=== PATIENT | male | born 1960 | race Caucasian/White ===

== ENCOUNTER 2021-04-17 03:39 | Inpatient (IN) | payer MEDICAID ==
[~2021-04-17] VITALS: Ht 177.8 cm; Wt 113.6 kg
[2021-04-17 04:18] LABS: PARTIAL THROMBOPLASTIN TIME 34 SECONDS (22-32)
[2021-04-17] MEDS ORDERED: ondansetron/PF 4mg/2ml inj IV ONE (04:25)
[2021-04-17 04:26] LABS: ETHANOL < 0.010 GM/DL (0.0-0.010); TROPONIN I 0.72 NG/ML (0.0-0.05)
[2021-04-17 04:32] LABS: URINE AMPHETAMINE SCREEN POSITIVE (Neg); URINE BARBITUATE SCREEN NEGATIVE (Neg); URINE BENZODIAZEPINES SCREEN NEGATIVE (Neg); URINE CANNABINOID SCREEN NEGATIVE (Neg); URINE COCAINE SCREEN NEGATIVE (Neg); URINE METHADONE SCREEN NEGATIVE (Neg); URINE OPIATE SCREEN POSITIVE (Neg); URINE PHENCYCLIDINE SCREEN NEGATIVE (Neg)
[2021-04-17] MEDS ORDERED: NO HOME MEDS (04:44)
[2021-04-17] MEDS ORDERED: magnesium Cl slow-release 64mg tablet PO PRN (05:40)
[2021-04-17] MEDS ORDERED: morphine 2 MG/ML inj. syringe IV PRN (05:40)
[2021-04-17] MEDS ORDERED: potassium Cl 20 mEq SR tablet PO PRN ×2 (05:40)
[2021-04-17] MEDS ORDERED: potassium Cl 40MEQ/1/2NS 520ml 520 ML IV PRN ×2 (05:40)
[2021-04-17] MEDS ORDERED: acetaminophen 325mg tablet PO PRN (05:40)
[2021-04-17] MEDS ORDERED: magnesium 4gm in 100ml NS 100 ML IV PRN (05:40)
[2021-04-17] MEDS ORDERED: ondansetron/PF 4mg/2ml inj IV PRN (05:40)
[2021-04-17] MEDS ORDERED: magnesium 2GM in 50ml NS 50 ML IV PRN (05:40)
[2021-04-17] MEDS ORDERED: heparin 10,000 units/1 ML INJ IV ONE (06:20)
[2021-04-17] MEDS: heparin 25,000 UNIT/250ml bag 250 ML IV SCH (07:13)
[2021-04-17] MEDS: K and/or MAG REPLACEMENT MC SCH ×2 (08:00→20:00)
[2021-04-17] MEDS ORDERED: PERFLUTREN PROTEIN-A MICROSPHR (Optison) 0.22 MG/ML 3ML VIAL IV ONE (08:00)
--- NOTE | 2021-04-17 08:23 | NUR ---
Hospitalist Shelley informed of trop level of 1.73
[2021-04-17 10:18] LABS: BASOPHILS # (AUTO) 0.1 X10'3 (0-0.2); EOSINOPHILS # (AUTO) 0.2 X10'3 (0-0.9); HEMATOCRIT 38.5 % (42.0-52.0); HEMOGLOBIN 12.5 g/dl (14.0-17.9); LYMPHOCYTES # (AUTO) 1.1 X10'3 (1.1-4.8); LYMPHOCYTES % (AUTO) 12.8 % (21-51); MEAN CORPUSCULAR HEMOGLOBIN 26.6 PG (27.0-31.0); MEAN CORPUSCULAR HGB CONC 32.6 g/dL (33.0-36.5); MEAN CORPUSCULAR VOLUME 81.7 FL (78-98); MEAN PLATELET VOLUME 8.5 FL (7.4-10.4); MONOCYTES # (AUTO) 0.7 X10'3 (0-0.9); MONOCYTES % (AUTO) 8.5 % (2-12); NEUTROPHILS # (AUTO) 6.4 X10'3 (1.8-7.7); NEUTROPHILS % (AUTO) 75.7 % (42-75); PLATELET COUNT 320 X10'3 (140-440); RED BLOOD COUNT 4.71 X10'6 (4.70-6.10); RED CELL DISTRIBUTION WIDTH 16.4 % (11.5-14.5); WHITE BLOOD COUNT 8.4 X10'3 (4.5-11.0)
[2021-04-17 10:29] LABS: ALANINE AMINOTRANSFERASE 44 U/L (12-78); ALBUMIN 2.5 G/DL (3.4-5.0); ALBUMIN/GLOBULIN RATIO 0.7 (1.1-1.5); ALKALINE PHOSPHATASE 148 IU/L (46-116); ANION GAP 9 (8-16); ASPARTATE AMINO TRANSFERASE 24 U/L (10-37); BILIRUBIN,TOTAL 1.3 MG/DL (0.1-1.0); BLOOD UREA NITROGEN 19 MG/DL (7-18); BUN/CREATININE RATIO 17.3 (5.4-32.0); CALCIUM 8.2 MG/DL (8.5-10.1); CHLORIDE 107 MMOL/L (99-107); GLUCOSE 108 MG/DL (70-104); POTASSIUM 4.4 MMOL/L (3.5-5.1); SODIUM 140 MMOL/L (135-145); TOTAL CARBON DIOXIDE 24.2 MMOL/L (24-32); eGFR 69 ML/MIN
[2021-04-17] MEDS: heparin 10,000 units/1 ML INJ IV PRN ×2 (15:12→23:33)
--- NOTE | 2021-04-17 17:06 | NUR ---
Patient in room ED 15. I have received report from Amina RN and had the opportunity to ask questions and assume patient care.
[2021-04-17 17:54] VITALS: BP 111/80
[2021-04-17 18:00] VITALS: BP 113/79
--- NOTE | 2021-04-17 18:57 | NUR ---
Problems reprioritized. Patient report given, questions answered & plan of care reviewed with Niki TYLER.
[2021-04-17] MEDS ORDERED: lisinopril 2.5mg tablet PO SCH (20:00)
[2021-04-17] MEDS: furosemide 20 MG/2 ML vial IV SCH (20:21)
[2021-04-17] MEDS: carVEDilol 3.125mg tablet PO SCH (20:21)
[2021-04-17 22:00] VITALS: BP 113/70
[2021-04-18] VITALS (16 sets, daily range): BP systolic 101–137; BP diastolic 46–84
[2021-04-18] MEDS: heparin 25,000 UNIT/250ml bag 250 ML IV SCH ×2 (03:56→08:17)
--- NOTE | 2021-04-18 05:42 | NUR ---
[place] Medication Administration: For this medication-pass time frame, all medication were reviewed, dispensed, administered and documented per hospital policy by JAYSON Carrillo. [place] documentation: I have reviewed and agree with all interventions, assessments performed and documented by JAYSON Carrillo.
[2021-04-18 06:51] LABS: BASOPHILS # (AUTO) 0.1 X10'3 (0-0.2); BASOPHILS % (AUTO) 1.2 % (0-1); EOSINOPHILS # (AUTO) 0.3 X10'3 (0-0.9); HEMATOCRIT 39.2 % (42.0-52.0); HEMOGLOBIN 12.4 g/dl (14.0-17.9); LYMPHOCYTES # (AUTO) 1.6 X10'3 (1.1-4.8); LYMPHOCYTES % (AUTO) 24.2 % (21-51); MEAN CORPUSCULAR HEMOGLOBIN 25.9 PG (27.0-31.0); MEAN CORPUSCULAR HGB CONC 31.6 g/dL (33.0-36.5); MEAN CORPUSCULAR VOLUME 82.1 FL (78-98); MEAN PLATELET VOLUME 8.2 FL (7.4-10.4); MONOCYTES # (AUTO) 0.4 X10'3 (0-0.9); MONOCYTES % (AUTO) 6.7 % (2-12); NEUTROPHILS # (AUTO) 4.2 X10'3 (1.8-7.7); NEUTROPHILS % (AUTO) 63.9 % (42-75); PLATELET COUNT 284 X10'3 (140-440); RED BLOOD COUNT 4.78 X10'6 (4.70-6.10); RED CELL DISTRIBUTION WIDTH 16.4 % (11.5-14.5); WHITE BLOOD COUNT 6.6 X10'3 (4.5-11.0)
--- NOTE | 2021-04-18 06:51 | NUR ---
Problems reprioritized. Patient report given, questions answered & plan of care reviewed with Pat RN.
[2021-04-18 07:33] LABS: ALBUMIN 2.6 G/DL (3.4-5.0); ANION GAP 10 (8-16); BLOOD UREA NITROGEN 16 MG/DL (7-18); BUN/CREATININE RATIO 15.2 (5.4-32.0); CALCIUM 8.4 MG/DL (8.5-10.1); CHLORIDE 104 MMOL/L (99-107); CREATININE 1.05 MG/DL (0.60-1.10); GLUCOSE 104 MG/DL (70-104); MAGNESIUM 2.2 MG/DL (1.5-2.4); POTASSIUM 4.3 MMOL/L (3.5-5.1); SODIUM 140 MMOL/L (135-145); TOTAL CARBON DIOXIDE 26.3 MMOL/L (24-32); eGFR 72 ML/MIN
[2021-04-18 07:38] LABS: TROPONIN I 1.62 NG/ML (0.0-0.05)
[2021-04-18] MEDS: carVEDilol 3.125mg tablet PO SCH ×2 (07:59→20:00)
[2021-04-18] MEDS: K and/or MAG REPLACEMENT MC SCH ×2 (07:59→20:00)
[2021-04-18] MEDS: spironolactone 25 MG tablet PO SCH (08:00)
[2021-04-18] MEDS: furosemide 20 MG/2 ML vial IV SCH ×2 (08:00→20:26)
[2021-04-18] MEDS: heparin 10,000 units/1 ML INJ IV PRN ×2 (08:16→22:49)
[2021-04-18] MEDS ORDERED: spironolactone 25 MG tablet PO SCH (08:30)
[2021-04-18] MEDS ORDERED: pneumococcal 23-VAL P-sac vacc 25 mcg/0.5ml vial IMVAC ONE (10:00)
[2021-04-18] MEDS: losartan 25mg tablet PO SCH (12:00)
[2021-04-18] MEDS ORDERED: midazolam 1 mg/ML 2ml injection ONE (14:25)
[2021-04-18] MEDS ORDERED: fentaNYL/PF 50MCG/1 ML 2ML syringe ONE (14:25)
[2021-04-18] MEDS ORDERED: LIDOcaine 1% (10mg/ml)w/preservative injection 20ml MDV ONE (14:26)
[2021-04-18] MEDS ORDERED: iohexol 350MG/ML 100ml bottle IV ONE ×2 (14:26→15:24)
[2021-04-18] MEDS ORDERED: iohexol 350 MG/ML 50ML vial IV ONE (14:26)
[2021-04-18] MEDS ORDERED: nitroGLYCERIN-Tridil 50MG/D5W 250 ML IV ONE (14:27)
[2021-04-18] MEDS ORDERED: heparin 1,000unit/ml 10ml vial 10 ML ONE (14:27)
[2021-04-18] MEDS ORDERED: verapamil 2.5 mg/ml inj IV ONE (14:27)
[2021-04-18 14:33] LABS: CHOL/HDL RATIO 2.8 (0.00-4.99); CHOLESTEROL 133 MG/DL (0-200); HDL CHOLESTEROL 47 MG/DL (35-60); LDL CHOLESTEROL 79 MG/DL (50-100); TRIGLYCERIDES 69 MG/DL (20-135)
[2021-04-18 15:18] LABS: ISTAT HGB ART 13.3 g/dl (14.0-18.0); ISTAT Hct ART 39 %PCV (42-52); ISTAT O2 SATURATION ARTERIAL 90 % (95-98); ISTAT SOURCE ART
--- NOTE | 2021-04-18 17:28 | NUR ---
PATIENT MEDICATED WITH ONE MG OF MORPHINE SULFATE FOR C/O PAIN; HOWEVER, SCAN OF MEDICATION APPARENTLY DEFAULTED. Addendum: 04/18/21 at 2132 by Merissa Purcell RN Amended: Links added.
[2021-04-19 02:00] VITALS: BP 119/77
[2021-04-19] MEDS: heparin 25,000 UNIT/250ml bag 250 ML IV SCH (03:51)
[2021-04-19 06:00] VITALS: BP 145/77
[2021-04-19 06:18] LABS: BASOPHILS % (AUTO) 0.6 % (0-1); EOSINOPHILS # (AUTO) 0.2 X10'3 (0-0.9); EOSINOPHILS % (AUTO) 2.9 % (0-6); HEMATOCRIT 40.2 % (42.0-52.0); HEMOGLOBIN 13.2 g/dl (14.0-17.9); LYMPHOCYTES # (AUTO) 1.4 X10'3 (1.1-4.8); LYMPHOCYTES % (AUTO) 21.2 % (21-51); MEAN CORPUSCULAR HEMOGLOBIN 26.5 PG (27.0-31.0); MEAN CORPUSCULAR HGB CONC 32.9 g/dL (33.0-36.5); MEAN CORPUSCULAR VOLUME 80.5 FL (78-98); MONOCYTES # (AUTO) 0.5 X10'3 (0-0.9); MONOCYTES % (AUTO) 6.9 % (2-12); NEUTROPHILS # (AUTO) 4.6 X10'3 (1.8-7.7); NEUTROPHILS % (AUTO) 68.4 % (42-75); PLATELET COUNT 260 X10'3 (140-440); RED CELL DISTRIBUTION WIDTH 15.9 % (11.5-14.5); WHITE BLOOD COUNT 6.7 X10'3 (4.5-11.0)
[2021-04-19 06:39] LABS: ALBUMIN 2.5 G/DL (3.4-5.0); ANION GAP 9 (8-16); BLOOD UREA NITROGEN 15 MG/DL (7-18); BUN/CREATININE RATIO 14.6 (5.4-32.0); CALCIUM 8.4 MG/DL (8.5-10.1); CHLORIDE 104 MMOL/L (99-107); CHOLESTEROL 155 MG/DL (0-200); CREATININE 1.03 MG/DL (0.60-1.10); GLUCOSE 96 MG/DL (70-104); HDL CHOLESTEROL 51 MG/DL (35-60); LDL CHOLESTEROL 99 MG/DL (50-100); MAGNESIUM 2.3 MG/DL (1.5-2.4); POTASSIUM 4.2 MMOL/L (3.5-5.1); SODIUM 140 MMOL/L (135-145); TOTAL CARBON DIOXIDE 27.5 MMOL/L (24-32); TRIGLYCERIDES 68 MG/DL (20-135); eGFR 74 ML/MIN
--- NOTE | 2021-04-19 06:42 | NUR ---
Problems reprioritized. Patient report given, questions answered & plan of care reviewed with Shelly TYLER & Lorena TYLER.
--- NOTE | 2021-04-19 06:46 | NUR ---
Patient in room PCU 3024. I have received report from JAYSON Prince/JAYSON Carrillo and had the opportunity to ask questions and assume patient care.
[2021-04-19] MEDS: carVEDilol 3.125mg tablet PO SCH (07:31)
[2021-04-19] MEDS: furosemide 20 MG/2 ML vial IV SCH (07:32)
[2021-04-19] MEDS: heparin 10,000 units/1 ML INJ IV PRN (07:37)
[2021-04-19] MEDS: spironolactone 25 MG tablet PO SCH (07:44)
[2021-04-19] MEDS ORDERED: atorvastatin 20mg tablet PO SCH (08:00)
[2021-04-19] MEDS ORDERED: aspirin 325mg tablet, delayed-release (Ecotrin) PO SCH (08:00)
[2021-04-19] MEDS: K and/or MAG REPLACEMENT MC SCH (08:00)
[2021-04-19] MEDS ORDERED: carVEDilol 3.125mg tablet PO ONE (08:30)
[2021-04-19] MEDS ORDERED: APIX5TAB3 PO (08:59)
[2021-04-19] MEDS ORDERED: SPIR25TA PO (08:59)
[2021-04-19] MEDS ORDERED: ASPI-1071 PO (08:59)
[2021-04-19] MEDS ORDERED: ATOR20TA66 PO (08:59)
[2021-04-19] MEDS ORDERED: LOSA25TA41 PO (08:59)
[2021-04-19] MEDS ORDERED: CARV6.253 PO (08:59)
[2021-04-19] MEDS ORDERED: apixaban 5mg tablet PO SCH (09:20)
[2021-04-19 11:00] VITALS: BP 92/57
[2021-04-19] MEDS: losartan 25mg tablet PO SCH (12:38)
[2021-04-19 15:00] VITALS: BP 108/70
[2021-04-19] MEDS ORDERED: FURO40TA4 PO (17:56)
--- NOTE | 2021-04-19 18:00 | NUR ---
Patient in room PCU 3024. I have received report from Shelly TYLER and had the opportunity to ask questions and assume patient care.
--- NOTE | 2021-04-19 18:30 | NUR ---
[place] documentation: I have reviewed and agree with all interventions, assessments performed and documented by JAYSON Carrillo.
--- NOTE | 2021-04-19 18:31 | NUR ---
Problems reprioritized. Patient report given, questions answered & plan of care reviewed with JAYSON Ness. Pt sitting up in bed, eating dinner independently. No signs of distress noted at this time.
--- NOTE | 2021-04-19 18:31 | NUR ---
[place] Medication Administration: For this medication-pass time frame, all medication were reviewed, dispensed, administered and documented per hospital policy by JAYSON Carirllo.
[2021-04-19] MEDS ORDERED: carvedilol 6.25mg tablet PO SCH (20:00)
[2021-04-23 06:09] LABS: ISTAT Hct MIX 38 %PCV (42-52); ISTAT O2 SATURATION MIX VENOUS 58 % (60-80); ISTAT SOURCE VEN
[2021-04-26] MEDS ORDERED: apixaban 5mg tablet PO SCH (20:00)
== END 2021-04-19 19:00 | disposition home or self-care (01) | DRG 190 ==
LOC: ER 03:40 → ED HOLD 05:43 → PCU 3S 17:18
PROVIDERS: ADMIT Internal Medicine; ATTEND Internal Medicine
PROC: 4A023N8 Measurement of Cardiac Sampling and Pressure, Bilateral, Percutaneous Approach (ICD-10-PCS; principal; 2021-04-18)
PROC: B2111ZZ Fluoroscopy of Multiple Coronary Arteries using Low Osmolar Contrast (ICD-10-PCS; 2021-04-18)
PROC: 3E0234Z Introduction of Serum, Toxoid and Vaccine into Muscle, Percutaneous Approach (ICD-10-PCS; 2021-04-18)
DX: I21.4 Non-ST elevation (NSTEMI) myocardial infarction (principal); I26.99 Other pulmonary embolism without acute cor pulmonale; I50.23 Acute on chronic systolic (congestive) heart failure; F15.10 Other stimulant abuse, uncomplicated; F10.20 Alcohol dependence, uncomplicated; I11.0 Hypertensive heart disease with heart failure; I25.10 Atherosclerotic heart disease of native coronary artery without angina pectoris; Z96.653 Presence of artificial knee joint, bilateral; I42.7 Cardiomyopathy due to drug and external agent; I42.0 Dilated cardiomyopathy; Z79.01 Long term (current) use of anticoagulants; Z79.82 Long term (current) use of aspirin; Z79.899 Other long term (current) drug therapy; Z86.711 Personal history of pulmonary embolism; Z86.718 Personal history of other venous thrombosis and embolism; Z23 Encounter for immunization; Z87.01 Personal history of pneumonia (recurrent); Y92.89 Other specified places as the place of occurrence of the external cause; Z71.51 Drug abuse counseling and surveillance of drug abuser
CPT/HCPCS: 36415; 76937; 80048; 80053; 80061; 80305; 80320; 82803; 83735; 83880; 84484; 85014; 85025; 85610; 85730; 87081; 90732; 93005; 93306; 93460; 96374; 99152; 99153; 99285; A4620; A5120; A6258; C1769; C1894; G0378; J1644; J1940; J2001; J2250; J2405; J3010; J3490; Q9967